=== PATIENT | female | born 1965 | race Caucasian/White ===

== ENCOUNTER → 2016-10-02 | Outpatient (CLI) | payer BC ==
[~2016-10-02] MED LIST: LEVE500T PO; NLV/20 PO; OXYC-57 PO; VITAMIN D PO
== END | disposition home or self-care (01) ==
LOC: C.CPL 16:26
DX: S83.282A Other tear of lateral meniscus, current injury, left knee, initial encounter (principal); X58.XXXA Exposure to other specified factors, initial encounter